=== PATIENT | female | born 1950 | race Caucasian/White ===

== ENCOUNTER 2016-12-13 21:20 | Outpatient (CLI) | payer MEDICARE, OTHER | END 2016-12-14 06:30 | disposition home or self-care (01) | LOC: SLEEP 21:20 | PROVIDERS: ATTEND Internal Medicine Critical Care Medicine | DX: G47.30 Sleep apnea, unspecified (principal); E66.9 Obesity, unspecified; I10 Essential (primary) hypertension | CPT/HCPCS: 95811 ==